=== PATIENT | female | born 1970 | race Caucasian/White ===

== ENCOUNTER 2019-06-12 15:45 | Outpatient (CLI) | payer BC, SELFPAY ==
--- NOTE | 2019-06-12 15:55 | USCV_ITS ---
Mago Chadwick Age: 49 Gender: F : 1970 Exam Date: 06/12/2019 15:58 Ordering Phys: Bela BoudreauxP JAVA USER INTERFACE DEVELOPER Technologist: Alejandra Walker Exam Location: [facility] [place] Indication: Pain in LLE HISTORY: Lower extremity pain. PROCEDURES: Examined were the left greater saphenous, common femoral, femoral, profunda, popliteal, posterior tibial veins, and peroneal trunk.. FINDINGS: All veins examined appear free of thrombus. No filling defects on color Doppler flow analysis. Vein flow and caliber vary with respiration. Increase in venous flow with augmentation. All veins appear compressible. CONCLUSIONS No evidence of DVT in the above-mentioned identifiable veins. Dr Sofia Pedroza MD [facility] (Electronically Signed) Final Date: 14 June 2019 15:37 S
== END 2019-06-12 15:46 | disposition home or self-care (01) ==
LOC: RAD 15:47
PROVIDERS: Family Provider Physician Assistant Medical; PCP Registered Nurse; Visit Provider Registered Nurse
DX: M79.662 Pain in left lower leg (principal)
CPT/HCPCS: 93971

== ENCOUNTER → 2019-08-04 10:16 | Outpatient (BNVA) | payer BC, SELFPAY | PROVIDERS: Family Provider Physician Assistant Medical; PCP Registered Nurse; Visit Provider Nurse Practitioner Family | DX: N76.0 Acute vaginitis (principal); B37.9 Candidiasis, unspecified; R35.0 Frequency of micturition | CPT/HCPCS: 36416; 80053; 81000; 82962; 87070; 87077; 87086; 87186 ==

== ENCOUNTER → 2020-01-15 14:10 | Outpatient (BNVA) | payer BC, SELFPAY | PROVIDERS: Family Provider Physician Assistant Medical; PCP Registered Nurse; Visit Provider Nurse Practitioner Family | DX: N39.0 Urinary tract infection, site not specified (principal); N89.8 Other specified noninflammatory disorders of vagina | CPT/HCPCS: 81000 ==

== ENCOUNTER → 2020-03-24 11:23 | Outpatient (BNVA) | payer BC, SELFPAY | PROVIDERS: Family Provider Physician Assistant Medical; PCP Registered Nurse; Visit Provider Nurse Practitioner Family | DX: R31.9 Hematuria, unspecified (principal) | CPT/HCPCS: 80053; 87077; 87086; 87184 ==

== ENCOUNTER → 2020-05-03 15:55 | Outpatient (BNVA) | payer BC, SELFPAY | PROVIDERS: Family Provider Physician Assistant Medical; PCP Registered Nurse; Visit Provider Nurse Practitioner Family | DX: N39.0 Urinary tract infection, site not specified (principal); R53.83 Other fatigue; E16.2 Hypoglycemia, unspecified | CPT/HCPCS: 80053; 81000; 83036; 84443; 85025 ==

== ENCOUNTER → 2020-07-06 08:37 | Outpatient (BNVA) | payer BC, SELFPAY | PROVIDERS: Family Provider Physician Assistant Medical; PCP Registered Nurse; Visit Provider Dermatology | DX: Z13.6 Encounter for screening for cardiovascular disorders (principal) | CPT/HCPCS: 80061; 82947; 83036 ==

== ENCOUNTER → 2022-02-13 08:43 | Outpatient (BNVA) | payer OTHER, SELFPAY | PROVIDERS: Family Provider Physician Assistant Medical; PCP Nurse Practitioner Family; Visit Provider Registered Nurse | DX: I83.11 Varicose veins of right lower extremity with inflammation (principal); I83.12 Varicose veins of left lower extremity with inflammation; R13.10 Dysphagia, unspecified | CPT/HCPCS: 80053; 82306; 82607; 84443; 85025 ==

== ENCOUNTER → 2022-04-23 08:38 | Outpatient (BNVA) | payer OTHER, SELFPAY | PROVIDERS: Family Provider Physician Assistant Medical; PCP Nurse Practitioner Family; Visit Provider Registered Nurse | DX: N39.0 Urinary tract infection, site not specified (principal) | CPT/HCPCS: 81000; 87077; 87086; 87184 ==

== ENCOUNTER → 2022-08-21 14:10 | Outpatient (BNVA) | payer OTHER, SELFPAY | PROVIDERS: Family Provider Physician Assistant Medical; PCP Nurse Practitioner Family; Visit Provider Nurse Practitioner Family | DX: J02.9 Acute pharyngitis, unspecified (principal) | CPT/HCPCS: 81000; 87086; 87880 ==

== ENCOUNTER → 2022-08-22 08:52 | Outpatient (BNVA) | payer OTHER, SELFPAY | PROVIDERS: Family Provider Physician Assistant Medical; PCP Nurse Practitioner Family; Visit Provider Nurse Practitioner Family | DX: R19.7 Diarrhea, unspecified (principal); Z90.710 Acquired absence of both cervix and uterus | CPT/HCPCS: 87506 ==

== ENCOUNTER → 2023-02-25 10:22 | Outpatient (BNVA) | payer OTHER, SELFPAY | PROVIDERS: Family Provider Physician Assistant Medical; PCP Nurse Practitioner Family; Visit Provider Registered Nurse | DX: E55.9 Vitamin D deficiency, unspecified (principal); R39.9 Unspecified symptoms and signs involving the genitourinary system; M54.50 Low back pain, unspecified; M54.9 Dorsalgia, unspecified; M81.0 Age-related osteoporosis without current pathological fracture; Z91.89 Other specified personal risk factors, not elsewhere classified; G89.29 Other chronic pain | CPT/HCPCS: 80053; 81000; 82306; 85025 ==

== ENCOUNTER 2023-03-05 06:00 | Outpatient (RCR) | payer OTHER, SELFPAY | END 2023-03-12 23:59 | disposition home or self-care (01) | LOC: WPT 06:00 | PROVIDERS: Family Provider Physician Assistant Medical; PCP Nurse Practitioner Family; Visit Provider Registered Nurse | DX: M54.50 Low back pain, unspecified (principal) | CPT/HCPCS: 97161 ==

== ENCOUNTER 2023-03-06 15:09 | Outpatient (CLI) | payer OTHER, SELFPAY ==
--- NOTE | 2023-03-06 15:30 | XR_ITS ---
WS: [id number] SCREENING DEXA SCAN [employer] CLINICAL INFORMATION: M81.0 - Age-related osteoporosis without current patholog... COMPARISON: None. FINDINGS: The L1-L4 bone mineral density measures 0.773 g/cm2. This corresponds to a T score score of -3.4 and Z score of -2.4. Left femoral neck bone mineral density measures 0.635 g/cm2. This corresponds to a T score of -3.0 an d Z score of -2.1. Right femoral neck bone mineral density measures 0.659 g/cm2. This corresponds to a T score -2.8of an d Z score of -2.0. Mean femoral neck bone mineral density measures 0.647 g/cm2. This corresponds to a T score of -2.9 an d Z score of -2.1. IMPRESSION: Osteoporosis lumbar spine. Osteoporosis femoral necks. Patient's FRAX calculated 10 year probability for major osteoporotic fracture is 22.5% and osteoporot ic hip fracture is 8.3%.
== END 2023-03-06 15:10 | disposition home or self-care (01) ==
PROVIDERS: Family Provider Physician Assistant Medical; PCP Nurse Practitioner Family; Visit Provider Registered Nurse
DX: Z13.820 Encounter for screening for osteoporosis (principal); M81.0 Age-related osteoporosis without current pathological fracture; E55.9 Vitamin D deficiency, unspecified; Z91.89 Other specified personal risk factors, not elsewhere classified
CPT/HCPCS: 77080

== ENCOUNTER 2023-04-18 09:06 | Outpatient (CLI) | payer OTHER, SELFPAY ==
--- NOTE | 2023-04-18 09:30 | MR_ITS ---
WS: [id number] MRI LUMBAR SPINE NONCONTRAST TECHNIQUE: Sagittal T1, T2 and STIR imaging. Axial T1 and T2 imaging. CLINICAL INFORMATION: M54.50 - Low back pain, unspecified COMPARISON: None. FINDINGS: Mild lumbar curve. No acute compression. Incidental Tarlov cyst in the sacrum. L1-L2: Normal. L2-L3: LEFT foraminal protrusion impinges the exiting LEFT L2 nerve root with mild to moderate LEFT f oraminal narrowing. RIGHT foramen is patent. Mild facet arthropathy. L3-L4: Mild annular bulging. Small LEFT foraminal protrusion with mild LEFT foraminal narrowing. RIGH T foramen is patent. Mild facet arthropathy. L4-L5: Mild annular bulging with slight effacement of the ventral thecal sac with impingement tosha ing L5 nerve roots bilaterally LEFT greater than RIGHT. Foramen are patent. Moderate facet arthropath y. L5-S1: No significant disc bulging. Mild arthropathy. Spinal canal and foramen are patent. Numerous partially visualized hepatic cysts. Simple LEFT renal cyst. IMPRESSION: 1. Mild marker. No acute compression. 2. Disc bulging L4-5 with slight impingement of traversing LEFT L5 nerve root in the subarticular re cess. 3. Prominent LEFT foraminal protrusion on 2 3 impinges the exiting L2 nerve roots with mild to moder ate LEFT foraminal narrowing. Tiny LEFT foraminal protrusion L3-4 with slight contact of the exiting LEFT L3 nerve root. 4. Moderate facet arthropathy L4-L5 and L5-S1. 5. Numerous partially visualized hepatic cysts. Simple LEFT renal cyst. Recommend further evaluation with contrast-enhanced CT abdomen pelvis. No prior comparisons.
== END 2023-04-18 09:07 | disposition home or self-care (01) ==
PROVIDERS: Family Provider Physician Assistant Medical; PCP Nurse Practitioner Family; Visit Provider Registered Nurse
DX: M51.36 Other intervertebral disc degeneration, lumbar region (principal); W19.XXXA Unspecified fall, initial encounter; Z91.89 Other specified personal risk factors, not elsewhere classified; M48.061 Spinal stenosis, lumbar region without neurogenic claudication; M47.817 Spondylosis without myelopathy or radiculopathy, lumbosacral region; K76.89 Other specified diseases of liver
CPT/HCPCS: 72148

== ENCOUNTER 2023-05-16 15:04 | Outpatient (CLI) | payer OTHER, SELFPAY ==
--- NOTE | 2023-05-16 15:13 | CT_ITS ---
WS: [id number] CT ABDOMEN AND PELVIS WITH CONTRAST HISTORY: L RENAL CYST/CYST OF KIDNEY TECHNIQUE: Imaging performed of the abdomen and pelvis with IV contrast. Single phase imaging of the abdomen. Coronal and sagittal reformats are submitted. All CT scans at [facility] use at [address] one of these dose optimization techniques: automated exposure control; mA and/or kV adjustment per patient size (includes targeted exams where dose is matched to clinical indication); or iterative re construction. IV CONTRAST: Omnipaque 350; 100 mL IV. Oral contrast: No DLP: 293.03 mGy.cm COMPARISON: MRI lumbar spine 04/18/2023 Lower thorax: Bilateral breast implants. Heart is normal size. No hiatal hernia. Liver/biliary system: Normal size liver. There are several scattered low-attenuation masses consisten t with cysts. The largest in the RIGHT lobe of the liver with a maximum diameter of 2.2 cm. There are cysts scattered throughout the LEFT and RIGHT hepatic lobes. No bile duct dilatation. Normal portal vein. Gallbladder: Normal. No gallstones or wall thickening. No pericholecystic fluid. Pancreas: Normal size pancreas and pancreatic duct. No adjacent inflammation. Spleen: Normal size spleen. No mass or infarct. Adrenal glands: Normal. Right kidney: Normal size kidney. No obstruction. 5 mm cyst lower pole cortex. Left kidney: Normal size kidney. There are several cortical cysts within the kidney. Majority of thes e are too small to characterize. The largest is in the posterior upper pole measuring 1.1 cm. No obst ruction. Aorta: Normal. Lymphadenopathy: None. Free fluid: None. GI tract: Nondistended stomach. No small bowel obstruction. There is extensive constipation throughou t the colon. Greatest constipation in the RIGHT colon. No appendicitis. No diverticulitis. Abdominal wall: Unremarkable abdominal wall. No hernia. Pelvis: Prior hysterectomy. No free fluid or mass. Bones: Unremarkable. IMPRESSION: 1. Numerous hepatic cysts. The largest cyst in the RIGHT lobe measures 2.2 cm. 2. LEFT renal cyst. Several of the cysts are too small to characterize completely. The largest is 1. 1 cm. 3. Marked constipation. No obstructive pattern.
[2023-05-16] MEDS: iohexol 350 mg/mL 500 mL Btl (per mL) IV (15:55)
== END 2023-05-16 15:05 | disposition home or self-care (01) ==
LOC: RAD 15:05
PROVIDERS: Family Provider Physician Assistant Medical; PCP Nurse Practitioner Family; Visit Provider Registered Nurse
DX: N28.1 Cyst of kidney, acquired (principal); K59.00 Constipation, unspecified
CPT/HCPCS: 74177; Q9967

== ENCOUNTER → 2023-07-15 13:56 | Outpatient (BNVA) | payer OTHER, SELFPAY | PROVIDERS: Family Provider Physician Assistant Medical; PCP Nurse Practitioner Family; Visit Provider Registered Nurse | DX: R39.9 Unspecified symptoms and signs involving the genitourinary system (principal); R68.89 Other general symptoms and signs | CPT/HCPCS: 81000; 87086; 87400 ==

== ENCOUNTER → 2024-03-16 08:30 | Outpatient (BNVA) | payer OTHER, SELFPAY | PROVIDERS: Family Provider Physician Assistant Medical; PCP Nurse Practitioner Family; Visit Provider Nurse Practitioner Family | DX: R39.9 Unspecified symptoms and signs involving the genitourinary system (principal) | CPT/HCPCS: 81000 ==

== ENCOUNTER → 2024-07-13 11:14 | Outpatient (BNVA) | payer OTHER, SELFPAY | PROVIDERS: PCP Nurse Practitioner Family; Visit Provider Registered Nurse | DX: Z91.018 Allergy to other foods (principal) | CPT/HCPCS: 82785; 86001; 86003; 86364 ==

== ENCOUNTER → 2024-08-19 07:30 | Outpatient (BNVA) | payer OTHER, SELFPAY | PROVIDERS: PCP Nurse Practitioner Family; Visit Provider Registered Nurse | DX: J02.9 Acute pharyngitis, unspecified (principal) | CPT/HCPCS: 87880 ==

== ENCOUNTER 2024-09-10 05:00 | Outpatient (RCR) | payer OTHER, SELFPAY | END 2024-10-10 05:00 | disposition home or self-care (01) | LOC: WPT 05:00 | PROVIDERS: Visit Provider Orthopaedic Surgery | DX: G56.22 Lesion of ulnar nerve, left upper limb (principal) | CPT/HCPCS: 97110; 97112; 97140; 97530 ==

== ENCOUNTER 2024-10-11 05:00 | Outpatient (RCR) | payer OTHER, SELFPAY | END 2024-11-09 23:59 | disposition home or self-care (01) | LOC: WPT 05:00 | PROVIDERS: Visit Provider Orthopaedic Surgery | DX: G56.22 Lesion of ulnar nerve, left upper limb (principal) | CPT/HCPCS: 97110; 97112; 97140; 97530 ==

== ENCOUNTER 2024-11-10 05:00 | Outpatient (RCR) | payer OTHER, SELFPAY | END 2024-12-10 23:59 | disposition home or self-care (01) | LOC: WPT 05:00 | PROVIDERS: Visit Provider Orthopaedic Surgery | DX: G56.22 Lesion of ulnar nerve, left upper limb (principal); S63.092D Other subluxation of left wrist and hand, subsequent encounter; X58.XXXD Exposure to other specified factors, subsequent encounter | CPT/HCPCS: 97110; 97112; 97140; 97530 ==

== ENCOUNTER → 2024-12-22 10:56 | Outpatient (BNVA) | payer OTHER, SELFPAY | PROVIDERS: Visit Provider Registered Nurse | DX: R51.9 Headache, unspecified (principal); G47.00 Insomnia, unspecified | CPT/HCPCS: 80053; 80061; 82306; 82607; 85025 ==

== ENCOUNTER 2025-03-22 08:56 | Outpatient (CLI) | payer OTHER, SELFPAY ==
--- NOTE | 2025-03-22 09:00 | MM_ITS ---
WS: [id number] BILATERAL SCREENING DIGITAL BREAST MAMMOGRAPHY WITH CHARLA DISPLACEMENT VIEWS. CAD PERFORMED. HISTORY: Z12.39 - Encounter for other screening for malignant neop... COMPARISON: 04/24/2016 Bilateral craniocaudal and mediolateral oblique views are performed with tomosynthesis and SM. Charla displacement views in CC and MLO projection also performed. Breasts composition: There are scattered areas of fibroglandular density. Prepectoral implants are intact. No suspicious masses or calcifications. Overall fibroglandular pattern is similar to 04/24/2016 with interval decrease in fibroglandular densities. No suspicious mass or grouping of calcifications. MM/MM scr tomosynthesis [id number] IMPRESSION: BI-RADS: 2 - Benign. FOLLOW-UP: 1 Year Follow-up
== END 2025-03-22 08:57 | disposition home or self-care (01) ==
LOC: RAD 08:59
PROVIDERS: PCP Registered Nurse; Visit Provider Registered Nurse
DX: Z12.31 Encounter for screening mammogram for malignant neoplasm of breast (principal); Z98.82 Breast implant status; R92.323 Mammographic fibroglandular density, bilateral breasts
CPT/HCPCS: 77063; 77067

== ENCOUNTER → 2025-04-20 13:27 | Outpatient (BNVA) | payer OTHER, SELFPAY | PROVIDERS: PCP Registered Nurse; Visit Provider Registered Nurse | DX: N39.0 Urinary tract infection, site not specified (principal) | CPT/HCPCS: 81000 ==